=== PATIENT | female | born 1965 | race Caucasian/White ===

== ENCOUNTER 2016-12-19 12:58 | Inpatient (IN) | payer OTHER ==
--- NOTE | ~2016-12-19 | CN ---
Consultation Report [facility] [address] [place]. [address] NAME: NIC DAVIS : 69 STATUS : ADM IN PAT#: [id number] AGE: 51 ADM/REG DATE : 12/19/16 MR#: [id number] REPORT SERV DATE: 12/22/16 DICTATED BY: SHAHANA CASTREJON DATE: 12/22/16 REPORT STATUS : Draft TRANSCRIBED BY: MODL DATE: 12/22/16 NEUROLOGY CONSULTATION DATE OF CONSULTATION: 12/22/2016 REASON FOR CONSULTATION: Possible seizure. ORDNANCE HANDLER: Dr. Daniel Gaffney. HISTORY OF PRESENT ILLNESS: The patient is a 51-year-old female, who is admitted to the hospital with increased lethargy. When she arrived in the emergency room, blood gases were drawn and it was noted that her pCO2 was 132 and her pH was 7.09. She was immediately intubated and placed on mechanical ventilation. The patient's family mentioned that this has happened to her in the past. She was recently admitted to [facility] because of lethargy and minimal responsiveness. When the family was questioned more extensively, the patient's mentioned that the patient has severe COPD. She has been smoking cigarettes since she was 16 years old. She smokes approximately a pack a day. He also mentions that she has "chronic back pain." She has been to several pain management practices, but has not been happy with her care. Consequently, she sees her PCP and is taking Roxicodone and Ativan. Because of her confusion, she tends to forget when she has taken her last dose of medication. Consequently, the patient's gives her narcotics, but does not dose her other medications. The has witnessed episodes of "spaciness." In these episodes, the patient will stare off into space, she gets confused, disoriented, and at times her eyes will roll back in her head and she will pass out. He has never seen an episode where she has tonic-clonic activity or an episode where she has experienced incontinence or has bitten her tongue. The patient went to see Dr. Garcia in the fall 2015. She was placed on Trileptal for possible seizure activity. PAST MEDICAL HISTORY: COPD, hypertension, possible seizure, depression, anxiety, GERD, "chronic back pain," and rheumatoid arthritis. PAST SURGICAL HISTORY: x2. MEDICATIONS: Home medication list includes ProAir inhaler p.r.n., Proventil nebulizer p.r.n., Norvasc 10 mg daily, Lotensin 40 mg daily, Coreg 12.5 mg b.i.d., Prozac 20 mg daily, Neurontin 300 mg four times a day and p.r.n., HCTZ 25 mg daily, Ativan 1 mg t.i.d. and p.r.n., Prilosec 20 mg daily, Trileptal 150 mg b.i.d., Roxicodone 20 mg four times a day, and p.r.n. ALLERGIES: CODEINE. SOCIAL HISTORY: The patient is . This is her second marriage. She has two children. Consultation Report [address] [address] NAME: NIC DAVIS : 69 STATUS : ADM IN PAT#: [id number] AGE: 51 ADM/REG DATE : 12/19/16 MR#: [id number] REPORT SERV DATE: 12/22/16 DICTATED BY: SHAHANA CASTREJON DATE: 12/22/16 REPORT STATUS : Draft TRANSCRIBED BY: MASSIMO DATE: 12/22/16 She is currently not working because of her disability. She is a smoker. She has been smoking one pack per day since the age of 16. She does not drink alcohol or use illicit drugs. FAMILY HISTORY: The patient's mother in her 60s from brain cancer. The patient's aunt (her mother's sister) also from brain cancer. Her father at the age of 45 from alcoholic cirrhosis. She has five brothers and three sisters. Her older brother has cancer with METS. One of her sister suffer from an AR and another sister has Crohn's. REVIEW OF SYSTEMS: Unable to obtain from the patient. She is sedated and intubated. PHYSICAL EXAMINATION: VITAL SIGNS: The patient is a 51-year-old female, who stands 5 feet 3 inches and weighs 188 pounds. She is currently mildly febrile with a temperature of 99.2, heart rate 77, she is mechanically ventilated on 100% FiO2, blood pressure is 138/79. NEURO: The patient is sedated on a Diprivan drip. Pupils are 4 mm, they are reactive. She does have a corneal blink bilaterally. Cough and gag reflex are intact. She does not respond to painful stimuli (she is currently sedated). Unable to do the rest of her neurologic exam due to her sedation. NECK: No carotid bruits. No JVD, thyromegaly. CHEST: Rhonchi heard throughout. CARDIAC: Regular rate and rhythm. LABORATORY DATA: CBC shows a white count of 16.5. BMP: Sodium 133, potassium 2.8. CT of the brain, no acute changes. ASSESSMENT/PLAN: 1. Episodes of unresponsiveness most likely related to hypercapnia. The patient has severe chronic obstructive pulmonary disease plus she is receiving narcotics and benzodiazepines. At this point, we will plan to decrease her narcotic dose and stop her benzodiazepines by discharge time. I also spoke with the extensively about the danger of these medications and end-stage chronic obstructive pulmonary disease. 2. Possible seizures. Most likely these "episodes" are due to hypercapnia and not seizure activity. However, to rule out seizures we will do an EEG and an MRI of the brain without gadolinium in the morning. The patient's Trileptal dose will also be discontinued at this time. 3. Excessive drug prescription use. Thank you again for including us in consultation. We will continue to follow with you. JIL/MASSIMO Consultation Report [address] [place]. [address] NAME: NIC DAVIS : 69 STATUS : ADM IN PAT#: [id number] AGE: 51 ADM/REG DATE : 12/19/16 MR#: [id number] REPORT SERV DATE: 12/22/16 DICTATED BY: SHAHANA CASTREJON DATE: 12/22/16 REPORT STATUS : Draft TRANSCRIBED BY: MASSIMO DATE: 12/22/16 [facility] / [id number] CC: Naheed Mortensen Dr., M.D.
--- NOTE | ~2016-12-19 | EEG ---
Electroencephalogram [address] [place]. [address] NAME: NIC DAVIS : 69 STATUS : DIS IN PAT#: [id number] AGE: 51 ADM/REG DATE : 12/19/16 MR#: [id number] REPORT SERV DATE: 12/31/16 DICTATED BY: RAFFY ADAMES DATE: 12/31/16 REPORT STATUS : Draft TRANSCRIBED BY: MASSIMO DATE: 12/31/16 REQUESTING PHYSICIANS: 1. Priscilla Galvan [facility]. 2. Daniel Gaffney M.D. INTERPRETING PHYSICIAN: Raffy Adames M.D. EEG NUMBER: [id number]. AGE: 51. REASON FOR EEG: History of seizure-like activity. The patient was intubated but has been off Precedex for 45 minutes prior to starting the study. Photic stimulation was performed. The background activity consisted of poorly organized, irregular in appearance 4-6 cycles per second located in the posterior head region. Intermittent slower frequencies in biphasic and triphasic configurations were seen. During more awake periods, the patient's background activity was faster of 8-9 cycles per second. No significant asymmetry of cerebral activity was present. Overall, the EEG appeared disorganized with intermittent slower frequencies infringing on the presence of relatively well-organized activity during awake stages. IMPRESSION: ABNORMAL EEG CHARACTERIZED BY PRESENCE OF DIFFUSE SLOWING OF CEREBRAL ACTIVITY. INTERMITTENT BIPHASIC AND TRIPHASIC WAVEFORMS SUGGEST PRESENCE OF UNDERLYING METABOLIC ENCEPHALOPATHY. CLINICAL CORRELATION IS RECOMMENDED. RICHARD/MASSIMO Raffy Adames MD / [id number] CC: Elan Dennis MD
--- NOTE | ~2016-12-19 | DS ---
Discharge Summary [facility] [address] [facility] [place]. [address] NAME: NIC DAVIS : 69 STATUS : DIS IN PAT#: [id number] AGE: 51 ADM/REG DATE : 12/19/16 MR#: [id number] REPORT SERV DATE: 12/25/16 DICTATED BY: TIANNA FOWLER DATE: 12/25/16 REPORT STATUS : Draft TRANSCRIBED BY: MODL DATE: 12/25/16 ADMISSION DATE: 12/19/2016 DISCHARGE DATE: 12/25/2016 DISCHARGE DIAGNOSES: 1. Hypercapnic respiratory failure, episodes of unresponsiveness, resolved. 2. Chronic obstructive pulmonary disease, stable. 3. Possible seizure, ruled out. 4. Chronic narcotic use. 5. Aspiration pneumonia, positive Strep pneumoniae. IMAGIN. CT brain, December 19, 2016; impression, negative noncontrast head CT. 2. Chest x-ray, December 19, 2016; impression, ET tube is satisfactory in place. 3. Chest x-ray, December 20, 2016; lungs clear, heart size normal. 4. Chest x-ray, December 23, 2016; impression, no acute process. 5. MRI of brain, December 24, 2016; impression, very mild deep white matter chronic microvascular ischemic changes. Otherwise, no acute intracranial pathology. LABORATORY DATA: December 25, 2016: WBCs 12.4, hemoglobin 15.2, hematocrit 49.9, and platelet count 217. Sodium is 142, potassium is 3.5, chloride is 102. CO2 is 30, BUN is 21, creatinine 0.60. Glucose is 124 and calcium is 9.4. COURSE OF HOSPITAL STAY: Please refer to history and physical dictated by Dr. Daniel Gaffney on December 19, 2016 for complete admission details, as well as consultation notes by Priscilla Galvan, nurse practitioner, and Dr. Norman. This patient is a 51-year-old female, who presented in [facility]'s Emergency Room, very lethargic and pCO2 was over 132 and pH was 7.309, required intubation and mechanical ventilation. The patient does present with a history of COPD and history of prescription drug use. The patient was admitted for hypercapnic respiratory failure, chronic obstructive pulmonary disease, and narcotic and benzodiazepine overdose. Neurology was consulted due to possible seizure activity. Imaging ruled out possible seizure. Dr. Norman was consulted to see the patient regarding possible depression. The patient was ruled out for possible suicide attempt. She will follow up with her primary care and can discuss recent hospitalization. The patient does have history of chronic narcotic and benzodiazepine use. Does admit overtaking her Ativan. Does state that she did not realize how many she had taken. The patient will be scheduled with a pain management group for further consultation requiring medication use. The patient does agree to taper off narcotics and benzodiazepines. It was noted the patient had possible aspiration pneumonia. She was started on Augmentin. She will continue additional four days. Then follow up with her primary care. She is on her baseline O2 at 2-3 L. The pillowcase turner will be involved to transition the patient home. She does state she does deny any further needs. DISCHARGE MEDICATIONS: 1. Norvasc 10 mg one p.o. daily. Discharge Summary [address] [address] NAME: NIC DAVIS : 69 STATUS : DIS IN PAT#: [id number] AGE: 51 ADM/REG DATE : 12/19/16 MR#: [id number] REPORT SERV DATE: 12/25/16 DICTATED BY: TIANNA FOWLER DATE: 12/25/16 REPORT STATUS : Draft TRANSCRIBED BY: MASSIMO DATE: 12/25/16 2. Lotensin 40 mg one p.o. daily. 3. Coreg 12.5 mg p.o. twice daily. 4. Augmentin 500 mg to 1000 mg twice daily. 5. Colace 100 mg p.o. twice daily p.r.n. 6. HCTZ 25 mg one p.o. daily. 7. Proventil inhaler one nebulizer inhaled p.r.n. for shortness of breath. 8. Multivitamin one tab p.o. daily. 9. Prozac 20 mg one p.o. daily. 10.Neurontin 300 mg one p.o. four times daily. 11.Trileptal 150 mg one p.o. twice daily. 12.Prilosec 20 mg one p.o. daily. 13. inhaler 3-4 inhaled p.r.n. for shortness of breath. This discharge took less than 30 minutes. [facility]/MODL Tianna Fowler NP / [id number] CC: Elan Dennis MD
--- NOTE | ~2016-12-19 | CN ---
Consultation Report [facility] [address] [place]. [address] NAME: NIC DAVIS : 69 STATUS : ADM IN PAT#: [id number] AGE: 51 ADM/REG DATE : 12/19/16 MR#: [id number] REPORT SERV DATE: 12/23/16 DICTATED BY: JOSE L RIVERA DATE: 12/23/16 REPORT STATUS : Draft TRANSCRIBED BY: MODL DATE: 12/23/16 PSYCHIATRIC CONSULTATION DATE OF CONSULTATION: 12/23/2016 I reviewed this patient's medical record. I discussed the patient's history with her . HISTORY OF PRESENT ILLNESS: She was admitted with lethargy and hypercapnic respiratory failure. Overuse of prescribed Ativan and possibly opioids was suspected. PAST PSYCHIATRIC HISTORY: Her said that she is frequently depressed because of her inability to work. She suffers from COPD and chronic back pain. The patient said that she did see a psychiatrist once in the past as part of a disability evaluation. Other than that, she felt she had no reason to seek psychiatric care. She has taken Ativan up to 1 mg t.i.d. for "nerves" for a number of years. She has been on an opioid regimen since before she and her got , which was 10 years ago. The thought she may have taken opioids for 20 years or more. The patient denies ever having suicidal ideation, and the corroborated the same. FAMILY HISTORY: The said that multiple members of the patient's family have legal problems associated with the manufacture and distribution of methamphetamine and other issues. Her father was alcoholic and he from liver disease when he was 45 years old. SOCIAL HISTORY: She is in her third marriage for the past 10 years. She has an 8-year-old daughter and a 34-year-old son. In the past, she worked in [employer] 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 MENTAL STATUS: She had difficulty with her speech because of postextubation dysarthria. Her mood was somewhat anxious. Her affect was full and appropriate. Her thinking was logical. She had no delusions. She had no hallucinations. She was oriented to time, place, and person. She did not have any suicidal ideation. DIAGNOSIS: Opioid and benzodiazepine dependence. RECOMMENDATIONS: I agree with the planned taper of benzodiazepines and a reduction or even a discontinuation of opioids at the discretion of the attending and the neurologist. There is no need for special suicide precautions. She can be discharged to home when she is medically cleared. I will sign off. ANAT/MASSIMO Jose L Consultation Report [address] [place]. [address] NAME: NIC DAVIS : 69 STATUS : ADM IN PAT#: [id number] AGE: 51 ADM/REG DATE : 12/19/16 MR#: [id number] REPORT SERV DATE: 12/23/16 DICTATED BY: JOSE L RIVERA DATE: 12/23/16 REPORT STATUS : Draft TRANSCRIBED BY: MASSIMO DATE: 12/23/16 Naheed Rivera / [id number] CC: Daniel Gaffney M.D.
--- NOTE | ~2016-12-19 | HP ---
History And Physical [address] [place]. [address] NAME: NIC DAVIS : 69 STATUS : ADM IN [facility]#: [id number] AGE: 51 ADM/REG DATE : 12/19/16 MR#: [id number] REPORT SERV DATE: 12/19/16 DICTATED BY: ELVIA JENKINS DATE: 12/19/16 REPORT STATUS : Draft TRANSCRIBED BY: MODL DATE: 12/19/16 DATE OF ADMISSION: 12/19/2016 TIME: 1540 hours. Seen in ER bed 1. HISTORY OF PRESENT ILLNESS: The patient is a 51-year-old white female with advanced COPD, who was given prescription for Ativan several days ago. Today, she brought in by her family with increasing lethargy. Her pCO2 was noted to be over 132 and pH 7.09 requiring intubation and mechanical ventilation. According to the ER staff, the family told them that this has happened several times before. Apparently, she had been in [place] several weeks ago with same thing on ventilator for a week. Other past medical history is not currently obtainable. Although, there is suggestion history of hypertension, previous seizure disorder . REVIEW OF SYSTEMS: Significant for mental status changes, shortness of breath, and decreased blood pressure. MEDICATIONS: Home medication list shows she takes ProAir HFA three to four inhalation as needed, albuterol nebulizer, amlodipine 10, benazepril 40, Coreg 12.5, Prozac 20, Neurontin 300 four times a day, hydrochlorothiazide 25 mg once a day, Ativan 1 mg p.o. three times a day p.r.n. anxiety, Prilosec 20, Trileptal 150, oxycodone 20 mg 4 times a day. ALLERGIES: CODEINE. PHYSICAL EXAMINATION: GENERAL: The patient is orally intubated. VITAL SIGNS: The blood pressure was 92/56, temperature 97.7, pulse 79. HEENT: Head is normocephalic. Sclerae and conjunctivae were slightly injected. Pupils equal and reactive. Doll's eyes are present. NECK: Supple. CHEST: Decreased breath sounds. No wheezing or rhonchi. CARDIAC: S1 and S2. No murmurs or gallops. ABDOMEN: Soft, nontender. No masses or organomegaly. EXTREMITIES: No clubbing, cyanosis, or edema. Pulses palpable. There is clonus of both feet. LABORATORY DATA: Shows the following. CT of the head showed negative noncontrast CT. Urine drug screen was positive for opiates. Positive for benzodiazepine. Arterial blood gas prior to intubation showed a pH of 7.09, pCO2 of 133, pO2 of 58 on 44% oxygen. Ammonia was 57. Sodium 138, potassium 4.7, chloride 104, CO2 of 30, BUN 9, creatinine 0.68, glucose 93, calcium 7.7. Total protein 5.5, albumin 2.7, total bilirubin 0.2, alkaline phosphatase 125, ALT 11, AST 13. Troponin less than 0.02. 2.1, 1.8, alcohol less than 10. After intubation repeat blood gas showed pH 7.24, pCO2 of 78, History And Physical [address] [address] NAME: NIC DAVIS : 69 STATUS : ADM IN PAT#: [id number] AGE: 51 ADM/REG DATE : 12/19/16 MR#: [id number] REPORT SERV DATE: 12/19/16 DICTATED BY: ELVIA JENKINS DATE: 12/19/16 REPORT STATUS : Draft TRANSCRIBED BY: MODL DATE: 12/19/16 PO2 of 78 on 28%. Urinalysis was negative. Chest x-ray normal chest. IMPRESSION: 1. The patient with hypercapnic respiratory failure. 2. Chronic obstructive pulmonary disease. 3. Probable narcotic and benzodiazepine overdose. 4. History of hypertension. PLAN: Continue to monitor, withhold sedation. Allow sedation to withdraw gradually wean for extubation when ready. DANI/MASSIMO Elvia Jenkins M.D. / [id number] CC: Elvia Jenkins M.D.
[2016-12-19 12:25] LABS: BE (BASE EXCESS) 3.7 MEQ/L (0 +/- 2.5); CARBOXYHEMOGLOBIN 4.8 % (0-3); HCO3 (ACTUAL BICARBONATE) 38.8 MEQ/L (23-27); HEMOBLOGIN CONTENT 15.3 G/DL (12-16); INSTRUMENT SERIAL # 8087; METHEMOGLOBIN 0.5 % (0-3); OPERATOR ID 14335; PCO2 (CO2 TENSION) 133 MMHG (35-45); PO2 (O2 TENSION) 58 MMHG (79-93); SAMPLE Arterial; pH 7.09 (7.37-7.43)
[2016-12-19 12:26] LABS: ALLENS TEST Pos
[2016-12-19 12:39] LABS: BASOPHILS 0.4 %; BASOPHILS ABSOLUTE 0.05 10/3/uL (0.0-0.16); EOSINOPHILS 2.7 %; EOSINOPHILS ABSOLUTE 0.32 10/3/uL (0.0-0.53); ER CBC TAT 0 Hrs 09 Mins; HEMATOCRIT 51.7 % (36.0-48.0); HEMOGLOBIN 14.7 g/dL (12.0-16.0); IMMATURE GRANULOCYTES 0.8 %; IMMATURE GRANULOCYTES ABSOLUTE 0.09 10/3/uL (0.0-0.11); LYMPHOCYTES 17.9 %; LYMPHOCYTES ABSOLUTE 2.13 10/3/uL (0.67-4.30); MEAN PLATELET VOLUME 10.2 fL (9.2-13.0); MONOCYTES ABSOLUTE 0.95 10/3/uL (0.21-1.20); NEUTROPHILS 70.2 %; NEUTROPHILS ABSOLUTE 8.34 10/3/uL (2.02-8.40); PLATELET COUNT 192 10/3/uL (150-400); RBC DISTRIBUTION WIDTH 17.5 % (12.0-16.0); RED CELL COUNT 5.56 10/6/uL (4.0-5.6); WHITE BLOOD CELLS 11.9 10/3/uL (4.5-10.5)
[2016-12-19 12:40] LABS: MANUAL DIFF NO %; MEAN CORPUS HGB CONC 28.4 g/dL (32.0-36.0); MEAN CORPUSCULAR HEMOGLOB 26.4 pg (26.0-34.0)
[2016-12-19 12:46] LABS: INTERNATIONAL NORMAL RATI 1.2 UNITS (-); PARTIAL THROMBO TIME 29.1 SEC (22.5-37.2); PROTIME (NOT ORD) 15.2 SEC (12.0-14.5)
[2016-12-19 12:57] LABS: ACETAMINOPHEN LEVEL (TYLENOL) 2.1 MCG/ML (10.0-20.0); ALKALINE PHOSPHATASE 125 U/L (45-117); BUN (BLOOD UREA NITROGEN) 9 MG/DL (6-23); CHLORIDE, SERUM 104 MMOL/L (96-112); CO2 (CARBON DIOXIDE) 30 MMOL/L (24-34); CREATININE 0.68 MG/DL (0.55-1.02); GFR AFRICAN AMERICAN 119 ML/MIN (>=60); GFR NON AFRICAN AMERICAN 103 ML/MIN (>=60); POTASSIUM, SERUM 4.7 MMOL/L (3.5-5.3); SALICYLATE 1.8 MG/DL (-); SGPT(ALT) 11 U/L (5-65); SODIUM, SERUM 138 MMOL/L (135-148); TOTAL BILIRUBIN 0.2 MG/DL (0-1.2); TOTAL PROTEIN 5.5 G/DL (6.0-8.5); TROPONIN I <0.02 NG/ML (<0.05)
[2016-12-19 12:58] LABS: ALBUMIN 2.7 G/DL (3.5-5.0); ALCOHOL < 10 MG/DL (0); CALCIUM, SERUM 7.7 MG/DL (8.5-10.4); GLOBULIN 2.8 G/DL (2.5-4.1); GLUCOSE, SERUM 93 MG/DL (60-99); SGOT(AST) 13 U/L (5-40)
[2016-12-19] MEDS ORDERED: *UNABLE2 (13:11)
[2016-12-19] MEDS ORDERED: LORAZEPAM (13:11)
[2016-12-19] MEDS ORDERED: ZOFRAN (13:12)
[2016-12-19] MEDS ORDERED: ZANTAC (13:12)
[2016-12-19] MEDS ORDERED: BENAZEPRIL (13:13)
[2016-12-19] MEDS ORDERED: PROZAC (13:13)
[2016-12-19] MEDS ORDERED: TRILEPTAL (13:14)
[2016-12-19] MEDS ORDERED: NEURONTIN (13:14)
[2016-12-19] MEDS ORDERED: KEFLEX (13:15)
[2016-12-19] MEDS ORDERED: HCTZ (13:15)
[2016-12-19] MEDS ORDERED: COREG (13:15)
[2016-12-19] MEDS ORDERED: OMEPRAZOLE (13:15)
[2016-12-19] MEDS ORDERED: NORVASC (13:16)
[2016-12-19] MEDS ORDERED: OXYCOD PO ×2 (13:16→13:29)
[2016-12-19] MEDS ORDERED: ATV1 PO (13:27)
[2016-12-19 13:28] LABS: ALLENS TEST Pos; BE (BASE EXCESS) 2.3 MEQ/L (0 +/- 2.5); CARBOXYHEMOGLOBIN 4.3 % (0-3); HCO3 (ACTUAL BICARBONATE) 32.6 MEQ/L (23-27); HEMOBLOGIN CONTENT 15.3 G/DL (12-16); INSTRUMENT SERIAL # 8087; METHEMOGLOBIN 0.3 % (0-3); O2 CONTENT 19.6 VOL% (18-24); OPERATOR ID 14335; PCO2 (CO2 TENSION) 78 MMHG (35-45); PO2 (O2 TENSION) 78 MMHG (79-93); SAMPLE Arterial; pH 7.24 (7.37-7.43)
[2016-12-19] MEDS ORDERED: PROZAC PO (13:28)
[2016-12-19] MEDS ORDERED: LOTE40 PO (13:28)
[2016-12-19] MEDS ORDERED: TRILEP150 PO (13:28)
[2016-12-19] MEDS ORDERED: NEUR300 PO (13:28)
[2016-12-19] MEDS ORDERED: PRILO PO (13:29)
[2016-12-19] MEDS ORDERED: COREG12 PO (13:29)
[2016-12-19] MEDS ORDERED: HYDROCHLOROT25 MG PO (13:29)
[2016-12-19] MEDS ORDERED: PROAIR HFA PO (13:30)
[2016-12-19] MEDS ORDERED: ALBUTEROL5 INH (13:30)
[2016-12-19] MEDS ORDERED: NORV10 PO (13:33)
[2016-12-19 13:42] LABS: ASCORBIC ACID (UR NOT ORDER) NEG (NEG); BILIRUBIN, URINE NEGATIVE (NEG); KETONE, URINE NEGATIVE (NEG); LEUKOCYTE ESTERASE(NOT OR NEG (NEG); NITRITE (URINE) NEG (NEG); WBC (NOT ORDERED) (RFLEX) < 1 (0-5)
[2016-12-19 13:54] LABS: AMPHETAMINES (NOT ORD) NEG (NEG); BARBITURATES (NOT ORDERED NEG (NEG); BENZODIAZEPINES (NOT ORD) POS (NEG); CANNABINOIDS (THC) NEG (NEG); COCAINE (NOT ORDERED) NEG (NEG); OPIATES POS (NEG); PHENCYCLIDINE(PCP) NEG (NEG); TRICYCLICS NEG (NEG)
[2016-12-19 17:02] LABS: ALLENS TEST Pos; BE (BASE EXCESS) 4.3 MEQ/L (0 +/- 2.5); CARBOXYHEMOGLOBIN 2.6 % (0-3); HCO3 (ACTUAL BICARBONATE) 35.5 MEQ/L (23-27); HEMOBLOGIN CONTENT 15.8 G/DL (12-16); INSTRUMENT SERIAL # 35151; METHEMOGLOBIN 0.5 % (0-3); MODE A/C; O2 CONTENT 21.3 VOL% (18-24); OPERATOR ID 35091; PCO2 (CO2 TENSION) 87 MMHG (35-45); PO2 (O2 TENSION) 133 MMHG (79-93); SAMPLE Arterial; TIDAL VOLUME 500 ML; pH 7.23 (7.37-7.43)
[2016-12-19 19:13] LABS: BE (BASE EXCESS) 9.4 MEQ/L (0 +/- 2.5); HCO3 (ACTUAL BICARBONATE) 33.8 MEQ/L (23-27); INSTRUMENT SERIAL # 35151; PCO2 (CO2 TENSION) 45 MMHG (35-45); PO2 (O2 TENSION) 72 MMHG (79-93)
[2016-12-19 19:14] LABS: ALLENS TEST Pos; CARBOXYHEMOGLOBIN 2.2 % (0-3); HEMOBLOGIN CONTENT 15.8 G/DL (12-16); METHEMOGLOBIN 0.4 % (0-3); MODE CMV; O2 CONTENT 20.9 VOL% (18-24); OPERATOR ID 13861; SAMPLE Arterial; TIDAL VOLUME 500 ML
[2016-12-19 21:10] LABS: FREE T4 1.2 NG/DL (0.76-1.46); ULTRASENSITIVE TSH 0.201 MCIU/ML (0.358-3.740)
[2016-12-19 21:40] LABS: PROCALCITONIN 0.1 ng/mL (<0.5)
[2016-12-20 08:38] LABS: BASOPHILS 0.2 %; BASOPHILS ABSOLUTE 0.03 10/3/uL (0.0-0.16); EOSINOPHILS 1.2 %; EOSINOPHILS ABSOLUTE 0.17 10/3/uL (0.0-0.53); HEMATOCRIT 49.2 % (36.0-48.0); IMMATURE GRANULOCYTES 0.5 %; IMMATURE GRANULOCYTES ABSOLUTE 0.07 10/3/uL (0.0-0.11); LYMPHOCYTES 12.3 %; LYMPHOCYTES ABSOLUTE 1.78 10/3/uL (0.67-4.30); MEAN CORPUSCULAR HEMOGLOB 26.8 pg (26.0-34.0); MONOCYTES 6.7 %; MONOCYTES ABSOLUTE 0.97 10/3/uL (0.21-1.20); NEUTROPHILS 79.1 %; PLATELET COUNT 183 10/3/uL (150-400); RBC DISTRIBUTION WIDTH 17.2 % (12.0-16.0); WHITE BLOOD CELLS 14.4 10/3/uL (4.5-10.5)
[2016-12-20 08:43] LABS: MANUAL DIFF NO %; MEAN CORPUS HGB CONC 30.5 g/dL (32.0-36.0); MEAN CORPUSCULAR VOLUME 87.9 fL (80-100)
[2016-12-20 08:50] LABS: BUN (BLOOD UREA NITROGEN) 7 MG/DL (6-23); CHLORIDE, SERUM 95 MMOL/L (96-112); CO2 (CARBON DIOXIDE) 32 MMOL/L (24-34); CPK 34 U/L (0-200); CREATININE 0.67 MG/DL (0.55-1.02); GFR AFRICAN AMERICAN 120 ML/MIN (>=60); GFR NON AFRICAN AMERICAN 103 ML/MIN (>=60); PHOSPHORUS, SERUM 2.3 MG/DL (2.5-4.5); SODIUM, SERUM 138 MMOL/L (135-148)
[2016-12-20 08:51] LABS: CALCIUM, SERUM 8.7 MG/DL (8.5-10.4); GLUCOSE, SERUM 123 MG/DL (60-99); POTASSIUM, SERUM 3.5 MMOL/L (3.5-5.3)
[2016-12-21 04:39] LABS: BASOPHILS 0.2 %; BASOPHILS ABSOLUTE 0.03 10/3/uL (0.0-0.16); EOSINOPHILS 0.6 %; EOSINOPHILS ABSOLUTE 0.09 10/3/uL (0.0-0.53); HEMATOCRIT 48.4 % (36.0-48.0); HEMOGLOBIN 15.6 g/dL (12.0-16.0); IMMATURE GRANULOCYTES 0.3 %; IMMATURE GRANULOCYTES ABSOLUTE 0.05 10/3/uL (0.0-0.11); LYMPHOCYTES 8.4 %; LYMPHOCYTES ABSOLUTE 1.36 10/3/uL (0.67-4.30); MEAN CORPUSCULAR HEMOGLOB 26.6 pg (26.0-34.0); MEAN PLATELET VOLUME 10.7 fL (9.2-13.0); MONOCYTES 4.5 %; MONOCYTES ABSOLUTE 0.72 10/3/uL (0.21-1.20); NEUTROPHILS ABSOLUTE 13.92 10/3/uL (2.02-8.40); PLATELET COUNT 182 10/3/uL (150-400); RBC DISTRIBUTION WIDTH 17.5 % (12.0-16.0); RED CELL COUNT 5.87 10/6/uL (4.0-5.6); WHITE BLOOD CELLS 16.2 10/3/uL (4.5-10.5)
[2016-12-21 04:40] LABS: MANUAL DIFF NO %; MEAN CORPUS HGB CONC 32.2 g/dL (32.0-36.0); MEAN CORPUSCULAR VOLUME 82.5 fL (80-100)
[2016-12-21 04:43] LABS: BUN (BLOOD UREA NITROGEN) 6 MG/DL (6-23); CALCIUM, SERUM 8.5 MG/DL (8.5-10.4); CHLORIDE, SERUM 90 MMOL/L (96-112); CO2 (CARBON DIOXIDE) 29 MMOL/L (24-34); CREATININE 0.54 MG/DL (0.55-1.02); GFR AFRICAN AMERICAN 128 ML/MIN (>=60); GFR NON AFRICAN AMERICAN 111 ML/MIN (>=60)
[2016-12-21 04:44] LABS: GLUCOSE, SERUM 154 MG/DL (60-99); PHOSPHORUS, SERUM 3.1 MG/DL (2.5-4.5); SODIUM, SERUM 131 MMOL/L (135-148)
[2016-12-21 10:21] LABS: ASCORBIC ACID (UR NOT ORDER) 40 (NEG); BILIRUBIN, URINE NEGATIVE (NEG); KETONE, URINE NEGATIVE (NEG); LEUKOCYTE ESTERASE(NOT OR NEG (NEG); WBC (NOT ORDERED) (RFLEX) 3 (0-5)
[2016-12-22 03:52] LABS: BASOPHILS 0.2 %; BASOPHILS ABSOLUTE 0.04 10/3/uL (0.0-0.16); EOSINOPHILS 1.8 %; HEMATOCRIT 45.8 % (36.0-48.0); HEMOGLOBIN 14.9 g/dL (12.0-16.0); IMMATURE GRANULOCYTES 0.4 %; IMMATURE GRANULOCYTES ABSOLUTE 0.06 10/3/uL (0.0-0.11); LYMPHOCYTES 10.8 %; LYMPHOCYTES ABSOLUTE 1.78 10/3/uL (0.67-4.30); MANUAL DIFF NO %; MEAN CORPUS HGB CONC 32.5 g/dL (32.0-36.0); MEAN CORPUSCULAR HEMOGLOB 26.7 pg (26.0-34.0); MEAN CORPUSCULAR VOLUME 82.1 fL (80-100); MEAN PLATELET VOLUME 10.5 fL (9.2-13.0); MONOCYTES 7.8 %; MONOCYTES ABSOLUTE 1.28 10/3/uL (0.21-1.20); NEUTROPHILS ABSOLUTE 13.02 10/3/uL (2.02-8.40); PLATELET COUNT 170 10/3/uL (150-400); RBC DISTRIBUTION WIDTH 17.6 % (12.0-16.0); RED CELL COUNT 5.58 10/6/uL (4.0-5.6); WHITE BLOOD CELLS 16.5 10/3/uL (4.5-10.5)
[2016-12-22 04:02] LABS: BUN (BLOOD UREA NITROGEN) 6 MG/DL (6-23); CALCIUM, SERUM 8.8 MG/DL (8.5-10.4); CHLORIDE, SERUM 90 MMOL/L (96-112); CO2 (CARBON DIOXIDE) 32 MMOL/L (24-34); CREATININE 0.51 MG/DL (0.55-1.02); GFR AFRICAN AMERICAN 131 ML/MIN (>=60); GFR NON AFRICAN AMERICAN 113 ML/MIN (>=60); GLUCOSE, SERUM 114 MG/DL (60-99); POTASSIUM, SERUM 2.8 MMOL/L (3.5-5.3); SODIUM, SERUM 133 MMOL/L (135-148)
[2016-12-22 16:46] LABS: ALBUMIN 2.9 G/DL (3.5-5.0); CHOL/HDL RATIO(NOT ORDER) 6.3 (0-5); CHOLESTEROL 227 MG/DL (< 200); HDL CHOLESTEROL 36 MG/DL (> 49); LDL CHOLESTEROL 132 MG/DL (< 130); NON-HDL CHOLESTEROL 191 MG/DL (< 160); SGPT(ALT) 12 U/L (5-65); TRIGLYCERIDE 297 MG/DL (< 150)
[2016-12-22 16:49] LABS: ALKALINE PHOSPHATASE 111 U/L (45-117); DIRECT BILIRUBIN 0.1 MG/DL (0.0-0.4); INDIRECT BILIRUBIN(NOT ORDER) 0.6 MG/DL (0.1-0.9); SGOT(AST) 17 U/L (5-40); TOTAL BILIRUBIN 0.7 MG/DL (0-1.2); TOTAL PROTEIN 6.7 G/DL (6.0-8.5)
[2016-12-22 16:50] LABS: FOLATE 18.7 NG/ML (>5.2); RHEUMATOID FACTOR QUANT < 10 IU/ML (0-15)
[2016-12-22 22:16] LABS: GLYCOHEMOGLOBIN (HbA1c) 5.9 % (4.7-6.1)
[2016-12-23 04:57] LABS: BASOPHILS 0.4 %; BASOPHILS ABSOLUTE 0.05 10/3/uL (0.0-0.16); EOSINOPHILS 2.2 %; EOSINOPHILS ABSOLUTE 0.29 10/3/uL (0.0-0.53); HEMOGLOBIN 15.9 g/dL (12.0-16.0); IMMATURE GRANULOCYTES 0.5 %; IMMATURE GRANULOCYTES ABSOLUTE 0.07 10/3/uL (0.0-0.11); LYMPHOCYTES 13.7 %; LYMPHOCYTES ABSOLUTE 1.84 10/3/uL (0.67-4.30); MEAN CORPUS HGB CONC 31.5 g/dL (32.0-36.0); MONOCYTES 10.7 %; MONOCYTES ABSOLUTE 1.43 10/3/uL (0.21-1.20); NEUTROPHILS 72.5 %; NEUTROPHILS ABSOLUTE 9.73 10/3/uL (2.02-8.40); PLATELET COUNT 139 10/3/uL (150-400); RBC DISTRIBUTION WIDTH 17.7 % (12.0-16.0); RED CELL COUNT 5.89 10/6/uL (4.0-5.6); WHITE BLOOD CELLS 13.4 10/3/uL (4.5-10.5)
[2016-12-23 04:59] LABS: HEMATOCRIT 50.4 % (36.0-48.0); MANUAL DIFF NO %; MEAN CORPUSCULAR VOLUME 85.6 fL (80-100)
[2016-12-23 05:12] LABS: BUN (BLOOD UREA NITROGEN) 9 MG/DL (6-23); CHLORIDE, SERUM 99 MMOL/L (96-112); GFR AFRICAN AMERICAN 132 ML/MIN (>=60); GFR NON AFRICAN AMERICAN 114 ML/MIN (>=60); GLUCOSE, SERUM 119 MG/DL (60-99); PHOSPHORUS, SERUM 3.1 MG/DL (2.5-4.5); POTASSIUM, SERUM 3.5 MMOL/L (3.5-5.3); SODIUM, SERUM 136 MMOL/L (135-148)
[2016-12-23 05:15] LABS: CO2 (CARBON DIOXIDE) 23 MMOL/L (24-34)
[2016-12-23 05:25] LABS: ANISOCYTOSIS 1+ (5-10/OIF) (0-5/OIF); PLATELET ESTIMATE SLT DEC (ADEQUATE)
[2016-12-24 04:23] LABS: BASOPHILS 0.6 %; BASOPHILS ABSOLUTE 0.07 10/3/uL (0.0-0.16); EOSINOPHILS 5.7 %; EOSINOPHILS ABSOLUTE 0.66 10/3/uL (0.0-0.53); HEMATOCRIT 49.1 % (36.0-48.0); HEMOGLOBIN 15.3 g/dL (12.0-16.0); IMMATURE GRANULOCYTES 0.7 %; IMMATURE GRANULOCYTES ABSOLUTE 0.08 10/3/uL (0.0-0.11); LYMPHOCYTES 16.3 %; LYMPHOCYTES ABSOLUTE 1.88 10/3/uL (0.67-4.30); MEAN CORPUS HGB CONC 31.2 g/dL (32.0-36.0); MEAN CORPUSCULAR HEMOGLOB 26.8 pg (26.0-34.0); MEAN PLATELET VOLUME 11.1 fL (9.2-13.0); MONOCYTES ABSOLUTE 1.15 10/3/uL (0.21-1.20); NEUTROPHILS 66.7 %; NEUTROPHILS ABSOLUTE 7.68 10/3/uL (2.02-8.40); PLATELET COUNT 178 10/3/uL (150-400); RBC DISTRIBUTION WIDTH 17.7 % (12.0-16.0); RED CELL COUNT 5.71 10/6/uL (4.0-5.6); WHITE BLOOD CELLS 11.5 10/3/uL (4.5-10.5)
[2016-12-24 04:25] LABS: MANUAL DIFF NO %
[2016-12-24 04:32] LABS: CALCIUM, SERUM 9.4 MG/DL (8.5-10.4); CHLORIDE, SERUM 100 MMOL/L (96-112); CREATININE 0.54 MG/DL (0.55-1.02); GFR AFRICAN AMERICAN 128 ML/MIN (>=60); GFR NON AFRICAN AMERICAN 111 ML/MIN (>=60); POTASSIUM, SERUM 3.3 MMOL/L (3.5-5.3); SODIUM, SERUM 140 MMOL/L (135-148)
[2016-12-24 04:37] LABS: BUN (BLOOD UREA NITROGEN) 15 MG/DL (6-23); CO2 (CARBON DIOXIDE) 31 MMOL/L (24-34); GLUCOSE, SERUM 90 MG/DL (60-99); PHOSPHORUS, SERUM 4.2 MG/DL (2.5-4.5)
[2016-12-24 11:00] LABS: ANA TITER <1:40 TITER
[2016-12-25 04:22] LABS: BASOPHILS 0.6 %; BASOPHILS ABSOLUTE 0.07 10/3/uL (0.0-0.16); EOSINOPHILS ABSOLUTE 0.62 10/3/uL (0.0-0.53); HEMATOCRIT 49.9 % (36.0-48.0); HEMOGLOBIN 15.2 g/dL (12.0-16.0); IMMATURE GRANULOCYTES 0.4 %; IMMATURE GRANULOCYTES ABSOLUTE 0.05 10/3/uL (0.0-0.11); LYMPHOCYTES 15.1 %; LYMPHOCYTES ABSOLUTE 1.88 10/3/uL (0.67-4.30); MANUAL DIFF NO %; MEAN CORPUS HGB CONC 30.5 g/dL (32.0-36.0); MEAN CORPUSCULAR HEMOGLOB 26.5 pg (26.0-34.0); MEAN CORPUSCULAR VOLUME 86.9 fL (80-100); MEAN PLATELET VOLUME 11.7 fL (9.2-13.0); MONOCYTES 7.5 %; MONOCYTES ABSOLUTE 0.93 10/3/uL (0.21-1.20); NEUTROPHILS 71.4 %; NEUTROPHILS ABSOLUTE 8.88 10/3/uL (2.02-8.40); PLATELET COUNT 217 10/3/uL (150-400); RBC DISTRIBUTION WIDTH 17.6 % (12.0-16.0); RED CELL COUNT 5.74 10/6/uL (4.0-5.6); WHITE BLOOD CELLS 12.4 10/3/uL (4.5-10.5)
[2016-12-25 04:43] LABS: CALCIUM, SERUM 9.4 MG/DL (8.5-10.4); CHLORIDE, SERUM 102 MMOL/L (96-112); CO2 (CARBON DIOXIDE) 30 MMOL/L (24-34); GFR AFRICAN AMERICAN 124 ML/MIN (>=60); GFR NON AFRICAN AMERICAN 107 ML/MIN (>=60); POTASSIUM, SERUM 3.5 MMOL/L (3.5-5.3); SODIUM, SERUM 142 MMOL/L (135-148)
[2016-12-25 04:45] LABS: BUN (BLOOD UREA NITROGEN) 21 MG/DL (6-23); GLUCOSE, SERUM 124 MG/DL (60-99)
[2016-12-25] MEDS ORDERED: AUG500 PO (09:34)
[2016-12-25] MEDS ORDERED: COLACEUDL PO (09:38)
[2016-12-25] MEDS ORDERED: MULTIPLE VIT PO (09:39)
== END 2016-12-25 12:32 | disposition home or self-care (01) | DRG 917 ==
LOC: ER 12:58 → CCU 15:43 → 4EA 12-24 00:33
PROVIDERS: Hospitalist; Internal Medicine; Internal Medicine Critical Care Medicine; Internal Medicine Pulmonary Disease; Nurse Practitioner; Nurse Practitioner Adult Health
PROC: 0BH17EZ Insertion of Endotracheal Airway into Trachea, Via Natural or Artificial Opening (ICD-10-PCS; principal; 2016-12-19)
PROC: 5A1945Z Respiratory Ventilation, 24-96 Consecutive Hours (ICD-10-PCS; principal; 2016-12-19)
DX: T42.4X1A Poisoning by benzodiazepines, accidental (unintentional), initial encounter (principal); J96.02 Acute respiratory failure with hypercapnia; G92 Toxic encephalopathy; J13 Pneumonia due to Streptococcus pneumoniae; F11.20 Opioid dependence, uncomplicated; F13.20 Sedative, hypnotic or anxiolytic dependence, uncomplicated; J44.9 Chronic obstructive pulmonary disease, unspecified; E87.6 Hypokalemia
CPT/HCPCS: 31720; 36569; 36600; 70450; 70551; 71010; 80048; 80053; 80061; 80076; 80305; 80307; 81001; 82140; 82306; 82533; 82550; 82607; 82746; 82805; 82962; 83036; 83735; 84100; 84132; 84145; 84439; 84443; 84484; 85025; 85610; 85730; 86039; 86431; 87040; 87070; 87077; 87186; 87205; 87449; 87641; 92610-GN; 93005; 94002; 94003; 94640; 94660; 94770; 95816; 96361; 96374; 96375; 99291; 99292; A9270-GY; C1751; J0330; J1885; J2060; J2310; J3010